=== PATIENT | male | born 2000 | race American Indian/Alaskan Native ===

== ENCOUNTER 2019-12-13 13:43 | Emergency (ER) | payer SELFPAY ==
--- NOTE | 2019-12-13 16:55 | Emergency Department Report ---
ED General Adult HPI - General Chief complaint: Upper Respiratory Infection Stated complaint: CHEST PAIN, STOMACH PAIN Time Seen by Provider: 12/13/19 16:32 Source: patient Mode of arrival: Ambulatory Limitations: No Limitations - History of Present Illness Initial comments: Patient is 19 years old male with no significant past medical history. Patient presented to the ER with vague complaints. Patient stated that he has been having some generalized numbness and tingling sensation. He also stated that he is having palpitation when he run fast. Patient also stated that he is worried that he does have diabetes. He also stated that he will have some nausea after eating but no vomiting. Patient denies any fever or chills. No chest pain or shortness of breath. No suicidal or homicidal ideation. No visual auditory hallucination. Patient does not have any previous psych history. - Related Data Allergies Allergy/AdvReac Type Severity Reaction Status Date / Time No Known Allergies Allergy Unverified 12/13/19 13:45 ED Review of Systems ROS: Stated complaint: CHEST PAIN, STOMACH PAIN Other details as noted in HPI Comment: All other systems reviewed and negative Constitutional: denies: chills, fever ENT: congestion Respiratory: denies: cough, shortness of breath Cardiovascular: palpitations. denies: chest pain Gastrointestinal: nausea. denies: abdominal pain, vomiting Musculoskeletal: denies: back pain ED Past Medical Hx - Past Medical History Previous Medical History?: Yes Additional medical history: palpatations - Surgical History Past Surgical History?: No - Social History Smoking Status: Never Smoker Substance Use Type: None ED Physical Exam - General Limitations: No Limitations General appearance: alert, in no apparent distress - Head Head exam: Present: atraumatic, normocephalic, normal inspection - Eye Eye exam: Present: normal appearance - ENT ENT exam: Present: normal exam, normal orophraynx, mucous membranes moist - Neck Neck exam: Present: normal inspection, full ROM. Absent: tenderness, meningismus, lymphadenopathy, thyromegaly - Respiratory Respiratory exam: Present: normal lung sounds bilaterally - Cardiovascular Cardiovascular Exam: Present: regular rate, normal heart sounds - GI/Abdominal GI/Abdominal exam: Present: soft, normal bowel sounds. Absent: distended, tenderness, guarding, rebound, rigid, organomegaly, mass, bruit, pulsatile mass, hernia - Extremities Exam Extremities exam: Present: normal inspection, full ROM, normal capillary refill. Absent: tenderness, pedal edema, calf tenderness - Back Exam Back exam: Present: normal inspection, full ROM. Absent: CVA tenderness (R), CVA tenderness (L), muscle spasm, paraspinal tenderness, vertebral tenderness, rash noted - Neurological Exam Neurological exam: Present: alert, oriented X3, CN II-XII intact, normal gait, reflexes normal. Absent: motor sensory deficit - Psychiatric Psychiatric exam: Present: normal mood - Skin Skin exam: Present: warm, intact, normal color ED Course Vital Signs 12/13/19 12/13/19 13:47 17:14 Temperature 98.0 F 97.8 F Pulse Rate 85 78 Respiratory 20 18 Rate Blood Pressure 139/94 Blood Pressure 139/89 [Left] O2 Sat by Pulse 99 100 Oximetry ED Medical Decision Making - Lab Data Result diagrams: 12/13/19 16:57 12/13/19 16:57 - Radiology Data Radiology results: report reviewed - Medical Decision Making Patient is 19 years old male with no significant past medical history. Patient presented to the ER with vague complaints. Patient stated that he has been having some generalized numbness and tingling sensation. He also stated that he is having palpitation when he run fast. Patient also stated that he is worried that he does have diabetes. He also stated that he will have some nausea after eating but no vomiting. Patient denies any fever or chills. No chest pain or shortness of breath. No suicidal or homicidal ideation. No visual auditory hallucination. Patient does not have any previous psych history. Patient labs reviewed and is unremarkable. Chest x-ray is negative for acute finding. Patient remain stable in the ER with a stable vital sign. Soon as the patient. That his labs and x-ray are normal stated that that is good and he advised to follow-up with his primary care physician and advised to return to the ER if he develop any new symptoms. Critical care attestation.: If time is entered above; I have spent that time in minutes in the direct care of this critically ill patient, excluding procedure time. ED Disposition Clinical Impression: Numbness, Cough Disposition: DC-01 TO HOME OR SELFCARE Is pt being admited?: No Condition: Stable Instructions: Paresthesia (ED) Referrals: [facility] [Provider Group] - 3-5 Days
[2019-12-13 17:13] LABS: Basophils % (Auto) 0.5 % (0.0-1.8); Eosinophils % (Auto) 0.3 % (0.0-4.3); Hematocrit 48.1 % (35.5-45.6); Hemoglobin 16.7 gm/dl (11.8-15.2); Lymphocytes # (Auto) 1.5 K/mm3 (1.2-5.4); Lymphocytes % (Auto) 18.5 % (13.4-35.0); Mean Corpuscular HGB Conc 35 % (32-34); Mean Corpuscular Volume 91 fl (84-94); Monocytes # (Auto) 0.5 K/mm3 (0.0-0.8); Monocytes % (Auto) 6.5 % (0.0-7.3); Platelet Count 264 K/mm3 (140-440); Red Blood Count 5.29 M/mm3 (3.65-5.03)
[2019-12-13 17:14] VITALS: BP 139/89
[2019-12-13 17:32] LABS: BUN/Creatinine Ratio 13; Blood Urea Nitrogen 12 mg/dL (9-20); Calcium 10.4 mg/dL (8.4-10.2); Hemolysis Index 17
--- NOTE | 2019-12-13 17:39 | XRay Report ---
CHEST 1 VIEW 12/13/2019 4:31 PM INDICATION / CLINICAL INFORMATION: chest pain. COMPARISON: None available. FINDINGS: SUPPORT DEVICES: None. HEART / MEDIASTINUM: No significant abnormality. LUNGS / PLEURA: No significant pulmonary or pleural abnormality. No pneumothorax. ADDITIONAL FINDINGS: No significant additional findings. IMPRESSION: 1. No acute abnormality of the chest. Signer Name: Case Andrews MD Signed: 12/13/2019 5:34 PM Workstation Name: [id number]
== END 2019-12-13 18:22 | disposition home or self-care (01) ==
LOC: ED 13:43
DX: R05 Cough (principal); R20.0 Anesthesia of skin; R00.2 Palpitations
CPT/HCPCS: 36415; 71045; 80048; 85025